=== PATIENT | female | born 1960 | race Caucasian/White ===

== ENCOUNTER → 2016-11-16 | Outpatient (CLI) | payer BC, SELFPAY | LOC: GMAB 12:41 | PROVIDERS: ATTEND Family Medicine | DX: L40.52 Psoriatic arthritis mutilans (principal); Z79.899 Other long term (current) drug therapy ==

== ENCOUNTER → 2017-05-25 | Outpatient (CLI) | payer BC | LOC: GMA 15:10 | PROVIDERS: ATTEND Nurse Practitioner Family | DX: N30.00 Acute cystitis without hematuria (principal) ==

== ENCOUNTER → 2017-06-03 | Outpatient (CLI) | payer BC | END | disposition home or self-care (01) | LOC: GMAB 17:39 | PROVIDERS: ATTEND Family Medicine | DX: N30.00 Acute cystitis without hematuria (principal) ==

== ENCOUNTER → 2017-06-10 | Outpatient (CLI) | payer BC | END | disposition home or self-care (01) | LOC: GMAB 17:19 | PROVIDERS: ATTEND Family Medicine | DX: N30.00 Acute cystitis without hematuria (principal) ==

== ENCOUNTER → 2017-07-19 | Outpatient (CLI) | payer BC ==
--- NOTE | 2017-07-19 14:37 | CT ---
EXAM DESCRIPTION: CT ABDOMEN AND PELVIS WITHOUT AND WITH CONTRAST CLINICAL HISTORY: N20.0, R31.29, N39.0 COMPARISON: None Available. TECHNIQUE: CT of the abdomen and pelvis are performed prior to and during IV bolus administration of nonionic contrast. Contrast enhancement was not performed This exam was performed according to our departmental dose-optimization program, which includes automated exposure control, adjustment of the mA and/or kV according to patient size and/or use of iterative reconstruction technique. FINDINGS: Lung bases are clear with mild dependent atelectasis in the right posterior costophrenic angle. Extensive prior surgery and internal fixation with pedicle screws and posterior rods from T10 to L5 is present. There is grade 1 spondylolisthesis of L5 and L5 on S1 with degenerative arthropathy but no definite pars defects. Prior anterior interbody fusions and partial fusion of the disc spaces at L2-3, L3-4, and L4-5 are noted. Noncontrast imaging demonstrates a tiny olimpia of calcification in a lower pole calyx of the right kidney and at least two and probably a third tiny calcification in the lower pole of the left kidney. Extensive aortic calcification is noted. The gallbladder is unremarkable. Within the pelvis I am uncertain whether the patient has a small atrophic uterus that is retroverted or possibly partial resection of the uterus with a remaining cervix or prominent vaginal cuff. Enhanced examination demonstrates a homogeneous liver without cystic or solid mass and a small normal spleen. The gallbladder and biliary system are normal. The pancreas is normal without cyst or mass or ductal dilation. Normal renal enhancement with incomplete opacification of the collecting systems without evidence of hydronephrosis is noted. The aorta and vena cava are normal without retroperitoneal adenopathy. The adrenal glands are small and normal. Large and small bowel caliber is normal. Small normal appendix is noted. Significant diverticulosis of the left colon is not apparent. No adnexal masses are seen. IMPRESSION: 1. Left renal stone disease with a T at least two larger and one tiny lower pole nonobstructing calculi and a tiny olimpia of calcification lower pole of the right kidney without evidence of hydronephrosis. 2. Extensive prior internal fixation with pedicle screws from T10 to L5 bilaterally with vertical links as well as attempted anterior interbody fusion from L2-3 through L4-5. 3. Grade 1 spondylolisthesis of L5 on S1 with questionable older healed L5 pars defects with hypertrophic bony changes in this region. Distorted neural foramina are noted. 4. There is either an atrophic retroverted uterus or a small remnant of the uterus possibly related to prior supracervical hysterectomy in the region of the vaginal cuff. Prominent vaginal cuff would be an additional consideration but no adnexal mass or worrisome abnormality noted. Electronically signed by: Keshawn Bearden MD 07/19/2017 2:36 PM CDT
== END | disposition home or self-care (01) ==
LOC: CT 07:54
PROVIDERS: ATTEND Urology
DX: N20.0 Calculus of kidney (principal); R31.29 Other microscopic hematuria; N39.0 Urinary tract infection, site not specified

== ENCOUNTER → 2018-05-08 | Outpatient (CLI) | payer BC ==
--- NOTE | 2018-05-08 14:20 | US ---
EXAM DESCRIPTION: Renal CLINICAL HISTORY: 57 years Female, stones COMPARISON: Previous renal sonogram December 07, 2013, CT abdomen and pelvis July 19, 2017 TECHNIQUE: Retroperitoneal sonogram was performed to evaluate the kidneys. No bladder images were obtained. FINDINGS: Right kidney Right renal length is 10.3 cm. This renal length is unchanged compared to previous study December 07, 2013. Renal cortical thickness and echogenicity are normal. No right renal mass, cyst or shadowing stone. No hydronephrosis. Left kidney Left renal length is 9.3 cm. On the previous sonogram of the kidneys December 07, 2013, the left renal length was 10.9 cm. Normal renal cortical echogenicity. Cortical thinning is seen at the lower pole of the left kidney. No left renal mass or cyst. Positive shadowing stone or cluster of stones in the lower calyceal region measures 1.1 cm. There may be two stones each measuring [address] July 19, 2017 showed calcifications in the lower left kidney consistent with renal stones. No stones are seen in the right kidney. No hydronephrosis. No images of the bladder are obtained. Patient could return to the department for imaging of the bladder. IMPRESSION: Stones in the lower calyces of the left kidney with overlying cortical scarring. Negative for hydronephrosis. Electronically signed by: Kenny Deleon MD 05/08/2018 2:19 PM CDT
== END ==
LOC: US 08:37
PROVIDERS: ATTEND Urology
DX: N20.0 Calculus of kidney (principal)

== ENCOUNTER → 2018-05-13 | Outpatient (CLI) | payer BC ==
--- NOTE | 2018-05-13 16:54 | RAD ---
EXAM DESCRIPTION: KUB CLINICAL HISTORY: BILATERAL KIDNEY STONES COMPARISON: CT scan July 19, 2017. IMPRESSION: Single AP supine view of the abdomen shows nonspecific, nonobstructive bowel gas pattern. Several calcified densities are seen projecting over the expected location of the lower pole of the left kidney measuring up to 1 cm greatest diameter. No abnormal calcifications are seen in the expected location of the ureters. The right kidney is partly obscured by overlying bowel gas limiting evaluation. Posterior hardware fixation of the thoracolumbar spine is seen with mild loosening of the left greater than right L5 pedicle screws. Electronically signed by: Bernardo Chow MD 05/13/2018 4:52 PM CDT
== END ==
LOC: RAD 14:40
PROVIDERS: ATTEND Urology
DX: N20.0 Calculus of kidney (principal)

== ENCOUNTER → 2018-09-04 | Outpatient (CLI) | payer BC | LOC: GMAL 17:15 | PROVIDERS: ATTEND Family Medicine | DX: N39.0 Urinary tract infection, site not specified (principal) ==

== ENCOUNTER → 2018-09-04 | Outpatient (CLI) | payer BC | LOC: GMAL 12:48 | PROVIDERS: ATTEND Family Medicine | DX: D51.3 Other dietary vitamin B12 deficiency anemia (principal); R53.83 Other fatigue; E55.9 Vitamin D deficiency, unspecified ==

== ENCOUNTER → 2019-09-17 | Outpatient (CLI) | payer BC | LOC: GMAL 14:19 | PROVIDERS: ATTEND Family Medicine | DX: L40.59 Other psoriatic arthropathy (principal); Z79.899 Other long term (current) drug therapy ==

== ENCOUNTER → 2019-12-04 | Outpatient (CLI) | payer BC | LOC: GMAL 11:42 | PROVIDERS: ATTEND Family Medicine | DX: L40.59 Other psoriatic arthropathy (principal); M85.89 Other specified disorders of bone density and structure, multiple sites; Z79.52 Long term (current) use of systemic steroids; Z79.899 Other long term (current) drug therapy ==

== ENCOUNTER → 2020-03-30 | Outpatient (CLI) | payer BC | LOC: GMAL 11:11 | PROVIDERS: ATTEND Family Medicine | DX: L40.59 Other psoriatic arthropathy (principal); Z79.899 Other long term (current) drug therapy ==

== ENCOUNTER 2020-10-04 14:48 | Outpatient (CLI) | payer BC | END 2020-10-10 10:12 | disposition home or self-care (01) | LOC: INFRM 14:48 | PROVIDERS: ATTEND Family Medicine | DX: U07.1 COVID-19 (principal); L40.50 Arthropathic psoriasis, unspecified; Z23 Encounter for immunization ==

== ENCOUNTER → 2020-10-20 | Outpatient (CLI) | payer BC | LOC: GMAL 14:23 | PROVIDERS: ATTEND Family Medicine | DX: L40.59 Other psoriatic arthropathy (principal) ==